=== PATIENT | female | born 1990 | race Hispanic/Latino ===

== ENCOUNTER 2020-04-06 14:32 | Emergency (ER) | payer SELFPAY ==
[2020-04-06 15:21] LABS: Urine Blood TRACE (NEG); Urine Glucose NEGATIVE (NEG); Urine Protein NEGATIVE (NEG); Urine Specific Gravity 1.015 (1.005-1.030)
[2020-04-06 15:26] LABS: Absolute Lymphocytes (CBC) 1.9 K/uL (0.7-4.9); Basophils % 0.7 % (0-1.3); Hematocrit 38.2 % (36.0-45.0); Lymphocytes % 26.8 % (15.3-44.8); MPV 8.2 fL (7.6-11.3); RBC Red Blood Cell Count 4.68 M/uL (3.86-4.86)
[2020-04-06] MEDS ORDERED: PROMETHAZINE INJ 25 MG/ML AMP ONE (15:29)
[2020-04-06] MEDS ORDERED: NA CHLORIDE 0.9% 1,000 ML ONE (15:29)
[2020-04-06 15:34] LABS: Urine Amorphous Sediment TRACE /HPF (NONE SEEN); Urine Bacteria 20-50 /HPF (<20)
[2020-04-06 16:06] LABS: BUN Blood Urea Nitrogen 8 mg/dL (7-18); Bicarbonate 28 mmol/L (21-32); Glucose Level 87 mg/dL (74-106); HCG, Quantitative 11577 mIU/mL (1-3); Potassium 3.3 mmol/L (3.5-5.1); Sodium Level 139 mmol/L (136-145)
--- NOTE | 2020-04-06 17:13 | ER ---
Nurse's Notes [facility] Name: Myra Lin Age: 29 yrs Sex: Female : 1990 Arrival Date: 04/06/2020 Time: 14:37 Bed 2 Private MD: Diagnosis: state;Nausea and vomiting Presentation: 04/06 14:51 Chief complaint: Patient states: Lower abd pain with N/V for 2 days. LMP: 02/21. No ll1 fever. Cough for 2 days. Coronavirus screen: Client denies travel out of the [place] in the last 14 days. cough unrelated to allergies, fatigue, nausea, vomiting. Client presents with at least one sign or symptom that may indicate coronavirus-19. Standard/surgical mask placed on the client. Ebola Screen: Patient denies travel to an Ebola-affected area in the 21 days before illness onset. Initial Sepsis Screen: Does the patient meet any 2 criteria? No. Patient's initial sepsis screen is negative. Does the patient have a suspected source of infection? Yes: Acute abdominal pain. Risk Assessment: Do you want to hurt yourself or someone else? Patient reports no desire to harm self or others. Onset of symptoms was April 05, 2020. 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 - Social history:: Smoking status: Patient denies any tobacco usage or history of. Screenin:00 Abuse screen: Denies threats or abuse. Denies injuries from another. Nutritional sv screening: No deficits noted. Tuberculosis screening: No symptoms or risk factors identified. Fall Risk None identified. Assessment: 15:07 General: Appears in no apparent distress. comfortable, well groomed, well developed, sv Behavior is calm, cooperative, appropriate for age. Pain:. Neuro: Level of Consciousness is awake, alert, obeys commands, Oriented to person, place, time, situation, Moves all extremities. Full function Gait is steady. Respiratory: Respiratory effort is even, unlabored, Respiratory pattern is regular, symmetrical. GI: Reports lower abdominal pain, nausea, vomiting. Derm: Skin is pink, warm \T\ dry. 16:58 Reassessment: Ultrasound at the bedside. sv 17:33 Reassessment: Patient appears in no apparent distress at this time. Patient and/or sv family updated on plan of care and expected duration. Pain level reassessed. Patient is alert, oriented x 3, equal unlabored respirations, skin warm/dry/pink. Patient states feeling better. Vital Signs: 14:51 BP 121 / 104; Pulse 76; Resp 17; Temp 98.8; Pulse Ox 100% ; Height 5 ft. 3 in. (160.02 ll1 cm); Pain 8/10; 15:19 BP 122 / 90; Pulse 80; Resp 16; Pulse Ox 100% ; sv 16:00 BP 109 / 63; Pulse 75; Resp 16; Pulse Ox 100% ; sv 16:58 BP 110 / 70; Pulse 73; Resp 14; Pulse Ox 100% on R/A; sv ED Course: 14:37 Patient arrived in ED. ag5 14:41 Meenu Malave, LARISA is PHCP. kb 14:41 Ronal Mcdaniel MD is Attending Physician. kb 14:50 Arm band placed on. ll1 14:52 Triage completed. ll1 14:57 Neeta Ballard, PATTY is Primary Nurse. sv 15:00 Patient has correct armband on for positive identification. Bed in low position. Call sv light in reach. Door closed. Head of bed elevated. 15:00 Urine collected: clean catch specimen, clear. sv 15:13 Lab(s) recollected, by ED staff, sent to lab. Inserted saline lock: 20 gauge in left kj1 antecubital area, using aseptic technique. Blood collected. 15:36 Urine Culture Sent. sv 17:21 US Transvaginal Ob In Process Unspecified. EDMS 17:33 No provider procedures requiring assistance completed. IV discontinued, intact, sv bleeding controlled, No redness/swelling at site. Pressure dressing applied. Administered Medications: 15:18 Drug: Phenergan 6.25 mg Route: IVP; Site: left antecubital; sv 16:00 Follow up: Response: No adverse reaction sv 15:19 Drug: NS 0.9% 1000 ml Route: IV; Rate: 1000 ml; Site: left antecubital; sv 16:20 Follow up: Response: No adverse reaction; IV Status: Completed infusion; IV Intake: sv 1000ml 17:32 Drug: Potassium Chloride 20 mEq Route: PO; sv 17:33 Follow up: Response: Medication administered at discharge. sv Intake: 16:20 IV: 1000ml; Total: 1000ml. sv Outcome: 17:13 Discharge ordered by . chaparro 17:33 Discharged to home ambulatory, with family. sv 17:33 Condition: stable 17:33 Discharge instructions given to patient, Instructed on discharge instructions, follow up and referral plans. medication usage, Demonstrated understanding of instructions, follow-up care, medications, Prescriptions given X 1. 17:33 Patient left the ED. sv Signatures: Dispatcher [employer] EDMS Meenu Malave, LARISA FRANZ-Neeta Mchugh, RN RN Smitha Nascimento ag5 Antoina Malave kj1 Marta Dewey RN RN ll1
--- NOTE | 2020-04-06 17:13 | EDPHYS ---
Physician Documentation [facility] Name: Myra Lin Age: 29 yrs Sex: Female : 1990 Arrival Date: 04/06/2020 Time: 14:37 Bed 2 Private MD: ED Physician Ronla Mcdaniel HPI: 04/06 17:10 This 29 yrs old Female presents to ER via Ambulatory with complaints of kb Abdominal Pain, Nausea/Vomiting. 17:10 The patient presents with abdominal pain. Onset: The symptoms/episode began/occurred 2 kb day(s) ago. The symptoms do not radiate. Associated signs and symptoms: Pertinent positives: nausea and vomiting, Pertinent negatives: diarrhea, fever. The symptoms are described as constant. Modifying factors: The symptoms are alleviated by nothing, the symptoms are aggravated by nothing. Severity of pain: At its worst the pain was moderate in the emergency department the pain is unchanged. The patient has not experienced similar symptoms in the past. The patient has not recently seen a physician. Pt reports nausea and vomiting for 2-3 days and lower abd pain. States she had a positive test at home. Has had an ectopic in the past. 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 - Social history:: Smoking status: Patient denies any tobacco usage or history of. ROS: 17:10 Constitutional: Negative for fever, chills, and weight loss, Cardiovascular: Negative kb for chest pain, palpitations, and edema, Respiratory: Negative for shortness of breath, cough, wheezing, and pleuritic chest pain, Back: Negative for injury and pain, MS/Extremity: Negative for injury and deformity, Skin: Negative for injury, rash, and discoloration, Neuro: Negative for headache, weakness, numbness, tingling, and seizure. 17:10 Abdomen/GI: Positive for abdominal pain, nausea and vomiting, Negative for diarrhea, constipation. Exam: 17:10 Constitutional: This is a well developed, well nourished patient who is awake, alert, kb and in no acute distress. Head/Face: Normocephalic, atraumatic. Chest/axilla: Normal chest wall appearance and motion. Nontender with no deformity. No lesions are appreciated. Cardiovascular: Regular rate and rhythm with a normal S1 and S2. No gallops, murmurs, or rubs. Normal PMI, no JVD. No pulse deficits. Respiratory: Lungs have equal breath sounds bilaterally, clear to auscultation and percussion. No rales, rhonchi or wheezes noted. No increased work of breathing, no retractions or nasal flaring. Skin: Warm, dry with normal turgor. Normal color with no rashes, no lesions, and no evidence of cellulitis. MS/ Extremity: Pulses equal, no cyanosis. Neurovascular intact. Full, normal range of motion. Neuro: Awake and alert, GCS 15, oriented to person, place, time, and situation. Cranial nerves II-XII grossly intact. Motor strength 5/5 in all extremities. Sensory grossly intact. Cerebellar exam normal. Normal gait. 17:10 Abdomen/GI: Inspection: abdomen appears normal, Bowel sounds: normal, in all quadrants, Palpation: soft, in all quadrants, mild abdominal tenderness, in the right lower quadrant and left lower quadrant. Vital Signs: 14:51 BP 121 / 104; Pulse 76; Resp 17; Temp 98.8; Pulse Ox 100% ; Height 5 ft. 3 in. (160.02 ll1 cm); Pain 8/10; 15:19 BP 122 / 90; Pulse 80; Resp 16; Pulse Ox 100% ; sv 16:00 BP 109 / 63; Pulse 75; Resp 16; Pulse Ox 100% ; sv 16:58 BP 110 / 70; Pulse 73; Resp 14; Pulse Ox 100% on R/A; sv MDM: 14:56 Patient medically screened. kb 17:09 Data reviewed: vital signs, nurses notes. Data interpreted: Pulse oximetry: on room air kb is 100 %. Interpretation: normal. Counseling: I had a detailed discussion with the patient and/or guardian regarding: the historical points, exam findings, and any diagnostic results supporting the discharge/admit diagnosis, lab results, radiology results, the need for outpatient follow up, an OB/Gyne specialist, to return to the emergency department if symptoms worsen or persist or if there are any questions or concerns that arise at home. 04/06 15:04 Order name: Urine Microscopic Only; Complete Time: 15:35 kb 04/06 15:04 Order name: Quantitative Hcg; Complete Time: 16:07 kb 04/06 15:04 Order name: Abo/rh Typing; Complete Time: 16:05 kb 04/06 15:04 Order name: Basic Metabolic Panel; Complete Time: 16:07 kb 04/06 15:04 Order name: CBC with Diff; Complete Time: 15:29 kb 04/06 15:07 Order name: Urine Dipstick--Ancillary (enter results); Complete Time: 15:24 eb 04/06 14:56 Order name: Urine Test (obtain specimen); Complete Time: 15:06 kb 04/06 14:56 Order name: Urine Dipstick-Ancillary (obtain specimen); Complete Time: 15:06 kb 04/06 15:07 Order name: Urine --Ancillary (enter results); Complete Time: 15:24 eb 04/06 15:35 Order name: Urine Culture EDMS 04/06 15:35 Order name: US Transvaginal Ob kb 04/06 15:04 Order name: IV Saline Lock; Complete Time: 15:19 kb 04/06 15:04 Order name: Labs collected and sent; Complete Time: 15:19 kb 04/06 15:04 Order name: NPO; Complete Time: 15:06 kb Administered Medications: 15:18 Drug: Phenergan 6.25 mg Route: IVP; Site: left antecubital; sv 16:00 Follow up: Response: No adverse reaction sv 15:19 Drug: NS 0.9% 1000 ml Route: IV; Rate: 1000 ml; Site: left antecubital; sv 16:20 Follow up: Response: No adverse reaction; IV Status: Completed infusion; IV Intake: sv 1000ml 17:32 Drug: Potassium Chloride 20 mEq Route: PO; sv 17:33 Follow up: Response: Medication administered at discharge. sv Disposition: 04/06/20 17:13 Discharged to Home. Impression: state, Nausea and vomiting. - Condition is Stable. - Discharge Instructions: Morning Sickness, [id number], First Trimester of , [id number]. - Prescriptions for Diclegis 10- 10 mg Oral tablet,delayed release (DR/EC) - take 1 tablet by ORAL route once daily As needed; 10 tablet. - Medication Reconciliation Form, Thank You Letter, Antibiotic Education, Prescription Opioid Use form. - Follow up: Emergency Department; When: As needed; Reason: Worsening of condition. Follow up: Private Physician; When: 2 - 3 days; Reason: Recheck today's complaints, Continuance of care, Re-evaluation by your physician. Addendum: 04/12/2020 19:43 Co-signature as Attending Physician, Ronal Mcdaniel MD. r n Signatures: Dispatcher [employer] EDND Meenu Malave, OSEI-C SENIOR NET DEVELOPER ARCHITECT-Neeta Mchugh, RN RN Ronal Rose MD MD rn Maco, Marta RN RN ll1 Corrections: (The following items were deleted from the chart) 04/06 17:33 17:13 04/06/2020 17:13 Discharged to Home. Impression: state; Nausea and sv vomiting. Condition is Stable. Forms are Medication Reconciliation Form, Thank You Letter, Antibiotic Education, Prescription Opioid Use. Follow up: Emergency Department; When: As needed; Reason: Worsening of condition. Follow up: Private Physician; When: 2 - 3 days; Reason: Recheck today's complaints, Continuance of care, Re-evaluation by your physician. kb
--- NOTE | 2020-04-06 17:32 | RAD REPORT ---
EXAM DESCRIPTION: US - Transvaginal OB - 04/06/2020 5:21 pm CLINICAL HISTORY: with pelvic pain COMPARISON: None. FINDINGS: The uterus measures 8 x 5 x 6 centimeters. The uterus is retroverted. Nabothian cyst is p resent within the cervix A normal appearing gestational sac is present within the endometrium. The tested sac measures 1.3 x 0 .9 x 0.8 centimeters. A yolk sac is seen. A pole is not visualized Right and left ovary appear normal. The right and left adnexa are unremarkable. No significant free fluid is seen. IMPRESSION: Single intrauterine with an estimated gestational age 5 weeks 5 days VANESA 11/08. pole not visualized presumably secondary to early gestation. It is recommended that the patient have a followup endovaginal sonogram in 1 week for re-evaluation
[2020-04-06 17:38] VITALS: TEMP 98.8; O2SAT 100
[2020-04-06] MEDS ORDERED: POTASSIUM CL SA 10 MEQ TAB PO ONE (17:39)
[2020-04-06 17:44] VITALS: BP 110/70
== END 2020-04-06 17:33 | disposition home or self-care (01) ==
LOC: ER 14:32
DX: O21.9 Vomiting of pregnancy, unspecified (principal); Z3A.01 Less than 8 weeks gestation of pregnancy
CPT/HCPCS: 36415; 76817; 80048; 81003; 81015; 81025; 84702; 85025; 86900; 86901; 87086; 87088; 96361; 96374; 99284; J2550; J7030

== ENCOUNTER 2021-11-20 10:32 | Emergency (ER) | payer OTHER ==
[2021-11-20 12:15] LABS: Urine Blood Negative (Negative); Urine Glucose Negative (Negative); Urine Protein Negative (Negative); Urine Specific Gravity 1.025 (1.005-1.030); Urine pH 6.5 (5.0-7.0)
[2021-11-20 12:23] LABS: Urine Specific Gravity/Preg 1.025 (1.005-1.030)
[2021-11-20 12:27] LABS: Absolute Lymphocytes (CBC) 2.7 K/uL (0.7-4.9); Hematocrit 41.7 % (36.0-45.0); Lymphocytes % 39.4 % (15.3-44.8); MCV 83.1 fL (80-100); MPV 8.3 fL (7.6-11.3); RBC Red Blood Cell Count 5.02 M/uL (3.86-4.86)
[2021-11-20] MEDS ORDERED: ONDANSETRON 4 MG/2 ML VIAL ONE (12:30)
[2021-11-20 12:32] LABS: Albumin 5.3 g/dL (3.4-5.0); Bilirubin Total 0.4 mg/dL (0.2-1.0); Potassium 3.9 mmol/L (3.5-5.1); Protein, Total 9.4 g/dL (6.4-8.2)
[2021-11-20 12:33] LABS: Urine Bacteria <20 /HPF (<20); Urine RBC None Seen /HPF (None Seen)
[2021-11-20 12:40] LABS: Calcium Oxalate Crystals- Ur Few /HPF (None Seen)
[2021-11-20] MEDS ORDERED: NA CHLORIDE 0.9% 1,000 ML ONE ×2 (12:46→13:05)
--- NOTE | 2021-11-20 13:18 | RAD REPORT ---
EXAM DESCRIPTION: CT - Stone Protocol - 11/20/2021 1:02 pm CLINICAL HISTORY: Flank pain. abd pain COMPARISON: No comparisons TECHNIQUE: Axial images were obtained without oral or IV contrast. Lack of contrast limits solid org an and vascular assessment. The [id number] spans the entirety of the system partially obscuring uppermost abdomen and lung bases. Coronal reformatted images were obtained and reviewed. All CT scans are performed using dose optimization technique as appropriate and may include automated exposure control or mA/KV adjustment according to patient size. FINDINGS: The lower lung finley are clear. Imaged portions of the liver and spleen show no suspicious findings on non-contrast imaging. The panc reas and adrenal glands are normal. No pathologic lymphadenopathy in the abdomen or pelvis. No urinary tract stones or obstructive uropathy. No bowel obstruction, free air, free fluid or abscess. Appendectomy.Mild sigmoid diverticulosis coli. No significant bony abnormality. IMPRESSION: No urinary tract stones or obstructive uropathy.
--- NOTE | 2021-11-20 14:43 | ER ---
Nurse's Notes [facility] Name: Myra Lin Age: 31 yrs Sex: Female : 1990 Arrival Date: 11/20/2021 Time: 10:33 Bed 12 Private MD: Diagnosis: Abdominal pain, Generalized;Paresthesia of skin Presentation: 11/20 12:11 Chief complaint: Patient states: left lower abdominal/pelvic pain that radiates into kb3 right pelvis and across lower back, also radiates into left upper abdomen underneath breast. Vomited x1 episode, currently nauseous. Coronavirus screen: Vaccine status: Patient reports being unvaccinated. Client denies travel out of the [place] in the last 14 days. At this time, the client does not indicate any symptoms associated with coronavirus-19. Ebola Screen: Patient negative for fever greater than or equal to 101.5 degrees Fahrenheit, and additional compatible Ebola Virus Disease symptoms Patient denies exposure to infectious person. Patient denies travel to an Ebola-affected area in the 21 days before illness onset. No symptoms or risks identified at this time. Initial Sepsis Screen: Does the patient meet any 2 criteria? No. Patient's initial sepsis screen is negative. Does the patient have a suspected source of infection? No. Patient's initial sepsis screen is negative. Risk Assessment: Do you want to hurt yourself or someone else? Patient reports no desire to harm self or others. Onset of symptoms was November 20, 2021 at 03:00. 12:11 Method Of Arrival: Ambulatory kb3 12:11 Acuity: NELDA 3 kb3 Triage Assessment: 12:15 General: Appears in no apparent distress. uncomfortable, slender, Behavior is calm, kb3 cooperative. Pain: Complains of pain in right lower quadrant and left lower quadrant Pain radiates to left low back and right low back Pain currently is 4 out of 10 on a pain scale. Quality of pain is described as sharp, Pain began 1 day ago. Is continuous. GI: Reports lower abdominal pain, nausea, vomiting. : Denies burning with urination, pain urinary frequency, urgency. 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 Last tetanus immunization: < 5 years ago > 10 years ago Adult Immunizations. - Social history:: Smoking status: Reported history of juuling and/or vaping. Patient uses alcohol, weekly. street drugs, marijuana. Screenin:25 Abuse screen: Denies threats or abuse. Denies injuries from another. Nutritional ss screening: No deficits noted. Tuberculosis screening: Never had TB. Fall Risk None identified. Assessment: 12:59 Reassessment: Pt to CT now VIA wheelchair. ss Vital Signs: 12:11 BP 115 / 80; Pulse 70; Resp 18; Temp 98.0; Pulse Ox 100% ; Weight 63.5 kg; Height 5 ft. kb3 2 in. (157.48 cm); Pain 4/10; 12:11 Body Mass Index 25.61 (63.50 kg, 157.48 cm) kb3 ED Course: 10:33 Patient arrived in ED. mr 11:20 Errol Patel MD is Attending Physician. ariel 12:09 Irene Park, PATTY is Primary Nurse. kb3 12:09 Initial lab(s) drawn, by me, sent to lab. Inserted saline lock: 22 gauge in left tm3 antecubital area, using aseptic technique. 12:15 Triage completed. kb3 12:15 Urine collected: clean catch specimen, clear. tm3 12:15 Arm band placed on right wrist. Patient placed in waiting room, Patient notified of kb3 wait time Patient Pt seen by PA in triage, IV initiated, labs sent. 13:03 CT Stone Protocol In Process Unspecified. EDMS 15:24 No provider procedures requiring assistance completed. Patient did not have IV access ss during this emergency room visit. 15:25 Patient has correct armband on for positive identification. ss Administered Medications: 12:24 Drug: Zofran (Ondansetron) 4 mg Route: IVP; Site: left antecubital; kb3 15:26 Follow up: Response: No adverse reaction ss 13:00 Drug: NS 0.9% 1000 ml Route: IV; Rate: 1 bolus; Site: left antecubital; kb3 14:30 Follow up: IV Status: Completed infusion Outcome: 14:42 Discharge ordered by . ariel 15:24 Discharged to home ambulatory. 15:24 Condition: good 15:24 Discharge instructions given to patient, Instructed on discharge instructions, follow up and referral plans. medication usage, Demonstrated understanding of instructions, follow-up care, medications, Prescriptions given X 4. 15:25 Patient left the ED. Signatures: Dispatcher [employer] EDMS Jaky Segundo tm3 Errol Patel MD MD cha Rivera, Mary mr Smirch, Shelby, PATTY RN Irene Park RN RN kb3
--- NOTE | 2021-11-20 14:43 | EDPHYS ---
Physician Documentation [facility] Name: Myra Lin Age: 31 yrs Sex: Female : 1990 Arrival Date: 11/20/2021 Time: 10:33 Bed 12 Private MD: ED Physician Errol Patel HPI: 11/20 14:37 This 31 yrs old Female presents to ER via Ambulatory with complaints of ariel Abdominal Pain, Vomiting. 14:37 The patient presents to the emergency department with nausea, vomiting. Onset: The ariel symptoms/episode began/occurred 3 day(s) ago. Possible causes: unknown. The symptoms are aggravated by movement, The symptoms are alleviated by remaining still. Associated signs and symptoms: The patient has no apparent associated signs or symptoms. Severity of symptoms: At their worst the symptoms were mild in the emergency department the symptoms are unchanged. The patient has not experienced similar symptoms in the past. 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 Last tetanus immunization: < 5 years ago > 10 years ago Adult Immunizations. - Social history:: Smoking status: Reported history of juuling and/or vaping. Patient uses alcohol, weekly. street drugs, marijuana. ROS: 14:38 Constitutional: Negative for fever, chills, and weight loss, Eyes: Negative for injury, ariel pain, redness, and discharge, ENT: Negative for injury, pain, and discharge, Neck: Negative for injury, pain, and swelling, Cardiovascular: Negative for chest pain, palpitations, and edema, Respiratory: Negative for shortness of breath, cough, wheezing, and pleuritic chest pain, Back: Negative for injury and pain, : Negative for injury, bleeding, discharge, and swelling, MS/Extremity: Negative for injury and deformity, Neuro: Negative for headache, weakness, numbness, tingling, and seizure, Psych: Negative for depression, anxiety, suicide ideation, homicidal ideation, and hallucinations, Allergy/Immunology: Negative for hives, rash, and allergies, Endocrine: Negative for neck swelling, polydipsia, polyuria, polyphagia, and marked weight changes, Hematologic/Lymphatic: Negative for swollen nodes, abnormal bleeding, and unusual bruising. 14:38 Abdomen/GI: Positive for nausea and vomiting, abdominal cramps, left flank skin wright. Exam: 14:38 Constitutional: This is a well developed, well nourished patient who is awake, alert, ariel and in no acute distress. Head/Face: Normocephalic, atraumatic. Eyes: Pupils equal round and reactive to light, extra-ocular motions intact. Lids and lashes normal. Conjunctiva and sclera are non-icteric and not injected. Cornea within normal limits. Periorbital areas with no swelling, redness, or edema. ENT: Nares patent. No nasal discharge, no septal abnormalities noted. Tympanic membranes are normal and external auditory canals are clear. Oropharynx with no redness, swelling, or masses, exudates, or evidence of obstruction, uvula midline. Mucous membranes moist. Neck: Trachea midline, no thyromegaly or masses palpated, and no cervical lymphadenopathy. Supple, full range of motion without nuchal rigidity, or vertebral point tenderness. No Meningismus. Chest/axilla: Normal chest wall appearance and motion. Nontender with no deformity. No lesions are appreciated. Cardiovascular: Regular rate and rhythm with a normal S1 and S2. No gallops, murmurs, or rubs. Normal PMI, no JVD. No pulse deficits. Respiratory: Lungs have equal breath sounds bilaterally, clear to auscultation and percussion. No rales, rhonchi or wheezes noted. No increased work of breathing, no retractions or nasal flaring. Back: No spinal tenderness. No costovertebral tenderness. Full range of motion. Pelvic Exam: Normal external genitalia. Speculum exam with closed cervical os, no discharge or bleeding noted. Bimanual exam with normal adnexa, no adnexal or cervical motion tenderness. Normal uterus. Female : Normal external genitalia. MS/ Extremity: Pulses equal, no cyanosis. Neurovascular intact. Full, normal range of motion. Neuro: Awake and alert, GCS 15, oriented to person, place, time, and situation. Cranial nerves II-XII grossly intact. Motor strength 5/5 in all extremities. Sensory grossly intact. Cerebellar exam normal. Normal gait. Psych: Awake, alert, with orientation to person, place and time. Behavior, mood, and affect are within normal limits. 14:38 Respiratory: the patient does not display signs of respiratory distress, Respirations: normal, Breath sounds: are clear throughout, Respiratory rate: 18 15:21 Musculoskeletal/extremity: DVT Exam: No signs of deep vein thrombosis. no pain, no ariel swelling, no tenderness, negative Homans' sign noted on exam, no appreciated bluish discoloration, no erythema, no increased warmth. Vital Signs: 12:11 BP 115 / 80; Pulse 70; Resp 18; Temp 98.0; Pulse Ox 100% ; Weight 63.5 kg; Height 5 ft. kb3 2 in. (157.48 cm); Pain 4/10; 12:11 Body Mass Index 25.61 (63.50 kg, 157.48 cm) kb3 MDM: 11:20 Patient medically screened. [facility] 14:38 Differential diagnosis: Nonspecific abd pain, gastritis, pancreatitis, viral ariel gastroenteritis. Data reviewed: vital signs, nurses notes, lab test result(s), radiologic studies, CT scan. Data interpreted: front desk monitor: rate is 70 beats/min, rhythm is regular, Pulse oximetry: on room air is 100 %. Test interpretation: by ED physician or midlevel provider:. Counseling: I had a detailed discussion with the patient and/or guardian regarding: the historical points, exam findings, and any diagnostic results supporting the discharge/admit diagnosis, lab results, radiology results, the need for outpatient follow up, for definitive care, a family practitioner. 11/20 11:20 Order name: CBC with Diff; Complete Time: 12:37 [facility] 11/20 11:20 Order name: CMP; Complete Time: 12:37 ariel 11/20 11:20 Order name: Lipase; Complete Time: 12:37 ariel 11/20 11:20 Order name: Urine Microscopic Only; Complete Time: 14:35 ariel 11/20 12:16 Order name: Urine Dipstick-Ancillary; Complete Time: 12:37 EDMS 11/20 12:16 Order name: Urine --Ancillary (enter results); Complete Time: 12:37 kj1 11/20 11:20 Order name: IV Saline Lock; Complete Time: 12:21 [facility] 11/20 11:20 Order name: Labs collected and sent; Complete Time: 12:21 [facility] 11/20 11:20 Order name: Urine Dipstick-Ancillary (obtain specimen); Complete Time: 12:20 [facility] 11/20 11:20 Order name: Urine Test (obtain specimen); Complete Time: 12:44 [facility] 11/20 12:38 Order name: CT Stone Protocol; Complete Time: 14:35 [facility] Administered Medications: 12:24 Drug: Zofran (Ondansetron) 4 mg Route: IVP; Site: left antecubital; kb3 15:26 Follow up: Response: No adverse reaction 13:00 Drug: NS 0.9% 1000 ml Route: IV; Rate: 1 bolus; Site: left antecubital; kb3 14:30 Follow up: IV Status: Completed infusion ss Disposition Summary: 11/20/21 14:42 Discharge Ordered Location: Home ariel Problem: new ariel Symptoms: have improved ariel Condition: Stable ariel Diagnosis - Abdominal pain, Generalized ariel - Paresthesia of skin ariel Followup: ariel - With: Private Physician - When: 2 - 3 days - Reason: Recheck today's complaints, Continuance of care, Re-evaluation by your physician Discharge Instructions: - Discharge Summary Sheet ariel - Abdominal Pain, Adult ariel - Paresthesia ariel - Abdominal Pain, Adult, [id number] ariel - Paresthesia, [id number] [facility] Forms: - Medication Reconciliation Form [facility] - Thank You Letter [facility] - Antibiotic Education [facility] - Prescription Opioid Use [facility] Prescriptions: - Valtrex 1 gram Oral tablet - take 1 tablet by ORAL route 3 times per day; 21 tablet; Refills: 0, Product [facility] Selection Permitted - Pepcid 20 mg Oral Tablet - take 1 tablet by ORAL route every 12 hours for 10 days; 20 tablet; Refills: 0, [facility] Product Selection Permitted - dicyclomine 20 mg Oral Tablet - take 1 tablet by ORAL route 4 times per day; 28 tablet; Refills: 0, Product [facility] Selection Permitted - Tylenol-Codeine #3 300 mg-30 mg Oral - take 2 tablet by ORAL route every 6 hours; 15 tablet; Refills: 0, Product [facility] Selection Permitted Signatures: Dispatcher [employer] Errol Tovar MD MD cha Bradberry, Kelly, RN RN kb3 Abby Welch RN ss
[2021-11-20 15:44] VITALS: BP 115/80; TEMP 98; O2SAT 100
== END 2021-11-20 15:25 | disposition home or self-care (01) ==
LOC: ER 10:32
DX: R10.84 Generalized abdominal pain (principal); R20.2 Paresthesia of skin; R11.2 Nausea with vomiting, unspecified
CPT/HCPCS: 85025; 36415; 81025; 83690; 80053; 76377; 74176; J7030 ×2; J2405; 81003; 81015; 96361; 96374; 99284

== ENCOUNTER 2022-04-27 15:22 | Emergency (ER) | payer OTHER ==
[2022-04-27 15:50] LABS: Urine Blood Negative (Negative); Urine Glucose Negative (Negative); Urine Protein Negative (Negative); Urine pH 5.5 (5.0-7.0)
--- NOTE | 2022-04-27 16:06 | RAD REPORT ---
EXAM DESCRIPTION: CT - CTHCSPWOC - 04/27/2022 3:57 pm CLINICAL HISTORY: Trauma, head and neck injury. fall with LOC, continued near syncope COMPARISON: No comparisons TECHNIQUE: Axial 5 mm thick images of the head were obtained. Axial 2 mm thick images of the cervical spine were obtained with sagittal and coronal reconstruction images generated and reviewed. All CT scans are performed using dose optimization technique as appropriate and may include automated exposure control or mA/KV adjustment according to patient size. FINDINGS: CT HEAD WITHOUT CONTRAST: No acute hemorrhage, hydrocephalus or extra-axial collection is identified.No areas of brain edema or midline shift. The paranasal sinuses and mastoids are clear.The calvarium is intact. CT CERVICAL SPINE WITHOUT CONTRAST: No fracture or subluxation.No prevertebral soft tissues swelling is identified. IMPRESSION: No acute intracranial or cervical spine findings.
--- NOTE | 2022-04-27 16:10 | EDPHYS ---
Physician Documentation [facility] Name: Myra Lin Age: 31 yrs Sex: Female : 1990 Arrival Date: 04/27/2022 Time: 15:23 Bed 9 Private MD: ED Physician Abdoulaye Sanchez HPI: 04/27 15:37 This 31 yrs old Female presents to ER via Ambulatory with complaints of Head snw Injury-Adult. 15:37 The patient or guardian reports pain, tenderness. The complaints affect the left snw occipital area and right occipital area. Context of injury: The problem was sustained at home, resulted from a fall, from a standing position. Onset: The symptoms/episode began/occurred suddenly, 1 week(s) ago, and became persistent. Associated signs and symptoms: Loss of consciousness: This patient experience a loss of consciousness, that was prolonged, "a few hours". Severity of symptoms: At their worst the symptoms were severe, in the emergency department the symptoms have improved, moderately. The patient has not experienced similar symptoms in the past. pt works in a [employer] and a customer told her to get checked out because pt is continuing to have dizziness, near syncope, tenderness to occiput and neck. 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 - Social history:: Smoking status: Patient denies any tobacco usage or history of. ROS: 15:36 Constitutional: Negative for fever, chills, and weight loss, Eyes: Negative for injury, snw pain, redness, and discharge, ENT: Negative for injury, pain, and discharge, Neck: Negative for injury, pain, and swelling, Cardiovascular: Negative for chest pain, palpitations, and edema, Respiratory: Negative for shortness of breath, cough, wheezing, and pleuritic chest pain, Abdomen/GI: Negative for abdominal pain, nausea, vomiting, diarrhea, and constipation, Back: Negative for injury and pain, : Negative for injury, bleeding, discharge, and swelling, MS/Extremity: Negative for injury and deformity, Skin: Negative for injury, rash, and discoloration, Psych: Negative for depression, anxiety, suicide ideation, homicidal ideation, and hallucinations. 15:36 Neuro: Positive for loss of consciousness, fell in bathroom and struck occiput on bathroom ledge with subsequent LOC "for hours". Exam: 15:35 Constitutional: This is a well developed, well nourished patient who is awake, alert, snw and in no acute distress. Eyes: Pupils equal round and reactive to light, extra-ocular motions intact. Lids and lashes normal. Conjunctiva and sclera are non-icteric and not injected. Cornea within normal limits. Periorbital areas with no swelling, redness, or edema. ENT: Nares patent. No nasal discharge, no septal abnormalities noted. Tympanic membranes are normal and external auditory canals are clear. Oropharynx with no redness, swelling, or masses, exudates, or evidence of obstruction, uvula midline. Mucous membranes moist. Chest/axilla: Normal chest wall appearance and motion. Nontender with no deformity. No lesions are appreciated. Cardiovascular: Regular rate and rhythm with a normal S1 and S2. No gallops, murmurs, or rubs. Normal PMI, no JVD. No pulse deficits. Respiratory: Lungs have equal breath sounds bilaterally, clear to auscultation and percussion. No rales, rhonchi or wheezes noted. No increased work of breathing, no retractions or nasal flaring. Abdomen/GI: Soft, non-tender, with normal bowel sounds. No distension or tympany. No guarding or rebound. No evidence of tenderness throughout. Back: No spinal tenderness. No costovertebral tenderness. Full range of motion. Skin: Warm, dry with normal turgor. Normal color with no rashes, no lesions, and no evidence of cellulitis. MS/ Extremity: Pulses equal, no cyanosis. Neurovascular intact. Full, normal range of motion. Neuro: Awake and alert, GCS 15, oriented to person, place, time, and situation. Cranial nerves II-XII grossly intact. Motor strength 5/5 in all extremities. Sensory grossly intact. Cerebellar exam normal. Normal gait. Psych: Awake, alert, with orientation to person, place and time. Behavior, mood, and affect are within normal limits. 15:35 Head/face: Noted is contusion, tenderness, that is moderate, of the left occipital area and right occipital area. 15:35 Neck: External neck: is normal, C-spine: no acute changes, ROM/movement: tenderness to bilateral lateral neck. Vital Signs: 15:30 BP 144 / 69; Pulse 91; Resp 16; Temp 98.1; Pulse Ox 97% on R/A; iw [place] Coma Score: 15:29 Eye Response: spontaneous(4). Verbal Response: oriented(5). Motor Response: obeys iw commands(6). Total: 15. 15:37 Eye Response: spontaneous(4). Verbal Response: oriented(5). Motor Response: obeys snw commands(6). Total: 15. 16:10 Eye Response: spontaneous(4). Verbal Response: oriented(5). Motor Response: obeys snw commands(6). Total: 15. MDM: 15:32 Patient medically screened. snw 16:10 Differential diagnosis: Contusion of Concussion with LOC. Data reviewed: vital signs, snw nurses notes, lab test result(s), radiologic studies. Counseling: I had a detailed discussion with the patient and/or guardian regarding: the historical points, exam findings, and any diagnostic results supporting the discharge/admit diagnosis, the presence of at least one elevated blood pressure reading (>120/80) during this emergency department visit, lab results, radiology results, the need for outpatient follow up, to return to the emergency department if symptoms worsen or persist or if there are any questions or concerns that arise at home. Special discussion: Based on the history and exam findings, there is no indication for further emergent testing or inpatient evaluation. I discussed with the patient/guardian the need to see the primary care provider for further evaluation of the symptoms. 04/27 15:50 Order name: Urine Dipstick-Ancillary; Complete Time: 15:52 EDMS 04/27 16:09 Order name: Urine --Ancillary (enter results) kj1 04/27 15:32 Order name: CT Head C Spine; Complete Time: 16:08 snw 04/27 15:32 Order name: Urine Dipstick-Ancillary (obtain specimen); Complete Time: 15:43 snw 04/27 15:32 Order name: Urine Test (obtain specimen); Complete Time: 15:43 snw 04/27 16:10 Order name: Urine --Ancillary; Complete Time: 16:11 EDMS Administered Medications: No medications were administered Disposition: 16:41 Co-signature as Attending Physician, Abdoulaye Sanchez MD I agree with the assessment and kdr plan of care. Disposition Summary: 04/27/22 16:09 Discharge Ordered Location: Home snw Condition: Stable snw Diagnosis - Unspecified injury of head, initial encounter snw - Strain of muscle, fascia and tendon at neck level, initial encounter snw Followup: snw - With: Emergency Department - When: As needed - Reason: Worsening of condition Followup: snw - With: Private Physician - When: 5 - 6 days - Reason: Recheck today's complaints, Continuance of care, Re-evaluation by your physician Discharge Instructions: - Discharge Summary Sheet snw - Head Injury, Adult snw - Muscle Strain snw - Post-Concussion Syndrome snw Forms: - Medication Reconciliation Form snw - Thank You Letter snw - Antibiotic Education snw - Prescription Opioid Use snw Prescriptions: - orphenadrine citrate 100 mg Oral Tablet Sustained Release - take 1 tablet by ORAL route 2 times per day As needed; 20 tablet; Refills: 0, snw Product Selection Permitted Signatures: Dispatcher [employer] EDMS Abdoulaye Sanchez MD MD kdr Waters, Shelly, FNP-C FNP-Angelw Jessica Duenas RN RN iw
--- NOTE | 2022-04-27 16:10 | ER ---
Nurse's Notes [facility] [place] Name: Myra Lin Age: 31 yrs Sex: Female : 1990 Arrival Date: 04/27/2022 Time: 15:23 Bed 9 Private MD: Diagnosis: Unspecified injury of head, initial encounter;Strain of muscle, fascia and tendon at neck level, initial encounter Presentation: 04/27 15:28 Chief complaint: Patient states: last week I fell in the shower and i hit my head, i iw passed out and my head still hurts since then. Coronavirus screen: At this time, the client does not indicate any symptoms associated with coronavirus-19. Ebola Screen: Patient negative for fever greater than or equal to 101.5 degrees Fahrenheit, and additional compatible Ebola Virus Disease symptoms Patient denies exposure to infectious person. Patient denies travel to an Ebola-affected area in the 21 days before illness onset. No symptoms or risks identified at this time. 15:28 Method Of Arrival: Ambulatory iw 15:29 Mechanism of Injury: resulted from standing up. Initial Sepsis Screen: Does the patient iw meet any 2 criteria? No. Patient's initial sepsis screen is negative. Does the patient have a suspected source of infection? No. Patient's initial sepsis screen is negative. Risk Assessment: Do you want to hurt yourself or someone else? Patient reports no desire to harm self or others. 15:29 Acuity: NELDA 3 iw 16:18 Onset of symptoms was April 21, 2022. 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 - Social history:: Smoking status: Patient denies any tobacco usage or history of. Screenin:43 [facility] ED Fall Risk Assessment (Adult) Score/Fall Risk Level 0 - 2 = Low Risk ll1 Oriented to surroundings, Maintained a safe environment, Educated pt \T\ family on fall prevention, incl call for assistance when getting out of bed, Hourly rounding (assess needs \T\ fall precautionary measures) done. Abuse screen: Denies threats or abuse. Nutritional screening: No deficits noted. Tuberculosis screening: No symptoms or risk factors identified. Assessment: 15:43 General: Appears in no apparent distress. Behavior is calm, cooperative, appropriate ll1 for age. Pain: Complains of pain in scalp Quality of pain is described as aching. Neuro: Level of Consciousness is awake, Moves all extremities. Full function Gait is steady, Speech is normal, Facial symmetry appears normal, Reports headache a syncopal episode. Cardiovascular: No deficits noted. 15:51 Reassessment: No changes from previously documented assessment. Patient and/or family ll1 updated on plan of care and expected duration. Pain level reassessed. Patient is alert, oriented x 3, equal unlabored respirations, skin warm/dry/pink. to CT. 16:18 Reassessment: No changes from previously documented assessment. Patient and/or family ll1 updated on plan of care and expected duration. Pain level reassessed. Patient is alert, oriented x 3, equal unlabored respirations, skin warm/dry/pink. Vital Signs: 15:30 BP 144 / 69; Pulse 91; Resp 16; Temp 98.1; Pulse Ox 97% on R/A; iw [place] Coma Score: 15:29 Eye Response: spontaneous(4). Verbal Response: oriented(5). Motor Response: obeys iw commands(6). Total: 15. 15:37 Eye Response: spontaneous(4). Verbal Response: oriented(5). Motor Response: obeys snw commands(6). Total: 15. 16:10 Eye Response: spontaneous(4). Verbal Response: oriented(5). Motor Response: obeys snw commands(6). Total: 15. ED Course: 15:23 Patient arrived in ED. rg4 15:29 Triage completed. iw 15:29 Arm band placed on. iw 15:31 [facility] Molina [facility]-C [facility]. snw 15:31 Abdoulaye Sanchez MD is Attending Physician. snw 15:39 Marta Dewey RN is Primary Nurse. ll1 15:44 Patient has correct armband on for positive identification. Bed in low position. Call ll1 light in reach. Side rails up X 1. Cardiac monitoring not applicable on this patient. 15:44 No provider procedures requiring assistance completed. Patient did not have IV access ll1 during this emergency room visit. 15:59 CT Head C Spine In Process Unspecified. EDMS 16:19 Urine --Ancillary (enter results) Sent. ll1 Administered Medications: No medications were administered Medication: 15:44 VIS not applicable for this client. ll1 Outcome: 16:09 Discharge ordered by . snnery 16:18 Discharged to home ambulatory. ll1 16:18 Condition: stable 16:18 Discharge instructions given to patient, Instructed on discharge instructions, follow up and referral plans. medication usage, Demonstrated understanding of instructions, follow-up care, medications, Prescriptions given X 1. 16:19 Patient left the ED. ll1 Signatures: Dispatcher [employer] EDMS Shayy Molina, GERIATRIC NURSE-C GERIATRIC NURSE-Csnw Jessica Duenas, RN RN Kristina Vail rg4 Marta Dewey RN RN ll1 Corrections: (The following items were deleted from the chart) 15:33 15:30 Pulse 91bpm; Resp 16bpm; Pulse Ox 97% RA; Temp 98.1F; iw iw 15:33 15:30 LMP 04/18/2022 iw iw 15:34 15:30 LMP 04/23/2022 iw iw
[2022-04-27 16:22] VITALS: BP 144/69; TEMP 98.1; O2SAT 97
== END 2022-04-27 16:19 | disposition home or self-care (01) ==
LOC: ER 15:22
DX: S09.90XA Unspecified injury of head, initial encounter (principal); S16.1XXA Strain of muscle, fascia and tendon at neck level, initial encounter; W18.2XXA Fall in (into) shower or empty bathtub, initial encounter; Y93.E1 Activity, personal bathing and showering; Y92.012 Bathroom of single-family (private) house as the place of occurrence of the external cause
CPT/HCPCS: 70450; 72125; 81003; 81025; 99283